=== PATIENT | male | born 1980 | race Two or more races ===

== ENCOUNTER 2018-10-02 15:59 | Emergency (ER) | payer BC ==
[~2018-10-02] VITALS: Ht 180.3 cm; Wt 130.2 kg
[2018-10-02 16:11] VITALS: BP 113/60
== END 2018-10-02 17:42 | disposition left against medical advice (07) ==
LOC: ER 16:05
DX: S61.211A Laceration without foreign body of left index finger without damage to nail, initial encounter (principal); Z53.21 Procedure and treatment not carried out due to patient leaving prior to being seen by health care provider; W26.9XXA Contact with unspecified sharp object(s), initial encounter; Y93.89 Activity, other specified; Y99.8 Other external cause status; Y92.89 Other specified places as the place of occurrence of the external cause